=== PATIENT | female | born 1985 | race Hispanic/Latino ===

== ENCOUNTER 2017-08-24 21:18 | Emergency (ER) | payer OTHER ==
--- NOTE | 2017-08-24 23:38 | ER ---
Nurse's Notes [facility] Name: Cherelle Macias Age: 31 yrs Sex: Female : 1985 Arrival Date: 08/24/2017 Time: 21:19 Bed 30 Private MD: Vick Zamorano E Diagnosis: Jacobs's palsy;Headache Presentation: 08/24 21:32 Presenting complaint: Patient states: "I gave 8 days ago and I've had a migraine aj1 ever since. Its just been getting worse. I feel like I have an ear infection in both ears and I feel pressure in my face and behind my eye. Today I've been throwing up" Reports a 13 year history of migraines, but states this is the worst one that she has had. Denies any injury to head. Denies fever. Transition of care: patient was not received from another setting of care. Onset of symptoms was July 2017. Risk Assessment: Do you want to hurt yourself or someone else? Patient reports no desire to harm self or others. Initial Sepsis Screen: Does the patient meet any 2 criteria? No. Patient's initial sepsis screen is negative. Does the patient have a suspected source of infection? No. Patient's initial sepsis screen is negative. Care prior to arrival: None. 21:32 Method Of Arrival: Ambulatory aj1 21:32 Acuity: RYAN 3 aj1 Triage Assessment: 21:35 General: Appears in no apparent distress. uncomfortable, Behavior is calm, cooperative, aj1 appropriate for age. Pain: Complains of pain in top of head, right mosque and left mosque Pain does not radiate. Pain currently is 10 out of 10 on a pain scale. Quality of pain is described as pressure, stabbing, Pain began 8 days Is continuous. Neuro: Level of Consciousness is awake, alert, obeys commands, Moves all extremities. Full function Gait is steady, Speech is normal, Facial symmetry appears normal, Reports dizziness, headache photophobia. Cardiovascular: Patient's skin is warm and dry. Respiratory: Airway is patent Respiratory effort is even, unlabored, Respiratory pattern is regular, symmetrical. GI: Reports vomiting. Derm: Skin is pink, warm \\T\\ dry. normal. Musculoskeletal: Circulation, motion, and sensation intact. 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 - Social history:: Smoking status: Patient/guardian denies using tobacco. - Ebola Screening: : Patient denies travel to an Ebola-affected area in the 21 days before illness onset. Screenin:19 Abuse screen: Denies threats or abuse. Denies injuries from another. Nutritional ed1 screening: No deficits noted. Tuberculosis screening: No symptoms or risk factors identified. Fall Risk None identified. Assessment: 22:19 General: Appears uncomfortable, Behavior is calm, cooperative. Pain: Complains of pain ed1 in left mosque and right mosque and top of head Pain does not radiate. Pain currently is 10 out of 10 on a pain scale. Quality of pain is described as sharp, throbbing, Pain began 8 days ago after giving Is continuous, Alleviated by nothing. Current management is with Tylenol, Advil, is ineffective. 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 Full function Gait is steady, Speech is normal, Facial symmetry appears normal, Pupils are PERRLA, Intact Reports headache in entire frontal area, occipital area, that is the "worst ever". Cardiovascular: Denies chest pain, Heart tones S1 S2 present Rhythm is regular. Respiratory: Airway is patent Respiratory effort is even, unlabored, Respiratory pattern is regular, symmetrical, Breath sounds are clear bilaterally. GI: Patient currently denies diarrhea, nausea, vomiting. : No signs and/or symptoms were reported regarding the genitourinary system. EENT: Reports bilateral ear pain. Derm: Skin is pink, warm \\T\\ dry. Musculoskeletal: Circulation, motion, and sensation intact. Capillary refill < 3 seconds, in bilateral fingers. 22:30 Reassessment: I agree with above assessment. Vital Signs: 21:35 BP 128 / 79; Pulse 68; Resp 18; Temp 98.1; Pulse Ox 100% on R/A; Height 5 ft. 1 in. aj1 (154.94 cm) (R); Pain 10/10; 22:19 BP 126 / 86; Pulse 76; Resp 18; Pulse Ox 100% on R/A; Pain 10/10; ed1 23:59 BP 117 / 77; Pulse 70; Resp 16; Pulse Ox 98% on R/A; mb3 ED Course: 21:19 Patient arrived in ED. ds1 21:20 Vick Zamorano MD is Private Physician. ds1 21:34 Triage completed. aj1 21:35 Arm band placed on Patient placed in an exam room. aj1 21:42 Adam Perez NP is PHCP. pm1 21:42 Kwaku Christine MD is Attending Physician. pm1 21:43 Monika Rodriguez LVN is Primary Nurse. ed1 22:19 Patient has correct armband on for positive identification. Bed in low position. Call ed1 light in reach. Adult w/ patient. Pulse ox on. NIBP on. 22:27 Primary Nurse role handed off by Monika Rodriguez LVN ed1 22:40 CT Head Brain wo Cont In Process Unspecified. EDMS 23:37 Vick Zamorano MD is Referral Physician. pm1 23:59 Joni Zavala RN is Primary Nurse. mb3 08/25 00:00 No provider procedures requiring assistance completed. Patient did not have IV access mb3 during this emergency room visit. Administered Medications: 08/24 23:45 Drug: SOLU-Medrol 125 mg Route: IM; Site: right gluteus; mb3 08/25 00:01 Follow up: Response: No adverse reaction mb3 Outcome: 08/24 23:38 Discharge ordered by . pm1 08/25 00:00 Discharged to home ambulatory, with family. mb3 Condition: stable Discharge instructions given to patient, Instructed on discharge instructions, follow up and referral plans. medication usage, Demonstrated understanding of instructions, follow-up care, medications, Prescriptions given X 1. 00:01 Patient left the ED. mb3 Signatures: Dispatcher [employer] Lashon Leslie, RN RN aj1 Tawnya Ragland RN RN fc [place], Demi ds1 Monika Rodriguez LVN LVN ed1 Adam Perez NP YARD PILOT pm1 Joni Zavala RN RN mb3
--- NOTE | 2017-08-24 23:38 | EDPHYS ---
Physician Documentation [facility] Name: Cherelle Macias Age: 31 yrs Sex: Female : 1985 Arrival Date: 08/24/2017 Time: 21:19 Bed 30 Private MD: Vick Zamorano E ED Physician Kwaku Christine HPI: 08/24 22:30 This 31 yrs old Female presents to ER via Ambulatory with complaints of pm1 Migraine. 22:30 The patient complains of pain to the top of head, left eye, left temporal area and pm1 right temporal area. The patient describes the headache as aching. Onset: The symptoms/episode began/occurred 8 day(s) ago. Associated signs and symptoms: Pertinent positives: vomiting, vomiting relieves her migraines typically, Pertinent negatives: fever, neck stiffness, Photophobia rash, vision changes, vision loss. Severity of symptoms: in the emergency department the pain has improved. Headache History: The patient has had previous headaches and this one is similar to previous episodes, and this one is more severe than previous episodes. The symptoms are alleviated by vomiting the symptoms are aggravated by nothing. The patient has not experienced similar symptoms in the past. Patient with vaginal delivery of child 8 days ago. Reports headache present since delivery. Hx of migraines. this headache presents just like her prior migraines. For the past three days patient has had scratchiness and dryness to her left eye and her smile is irregular on the left side. 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 - Social history:: Smoking status: Patient/guardian denies using tobacco. - Ebola Screening: : Patient denies travel to an Ebola-affected area in the 21 days before illness onset. ROS: 22:30 Constitutional: Negative for fever, chills, and weight loss, Eyes: Negative for injury, pm1 pain, redness, and discharge, Left eye scratchiness and dryness Neck: Negative for injury, pain, and swelling, Cardiovascular: Negative for chest pain, palpitations, and edema, Respiratory: Negative for shortness of breath, cough, wheezing, and pleuritic chest pain, Abdomen/GI: Negative for abdominal pain, nausea, vomiting, diarrhea, and constipation, Back: Negative for injury and pain, : Negative for injury, bleeding, discharge, and swelling, MS/Extremity: Negative for injury and deformity, Skin: Negative for injury, rash, and discoloration. 22:30 ENT: Positive for ear pain, Negative for hearing loss, rhinorrhea, sore throat. 22:30 Neuro: Positive for headache, Negative for loss of consciousness, numbness, tingling, weakness. Exam: 22:30 Constitutional: This is a well developed, well nourished patient who is awake, alert, pm1 and in no acute distress. Head/Face: Normocephalic, atraumatic. Eyes: Pupils equal round and reactive to light, extra-ocular motions intact. Lids and lashes normal. Conjunctiva and sclera are non-icteric and not injected. Cornea within normal limits. Periorbital areas with no swelling, redness, or edema. ENT: Nares patent. No nasal discharge, no septal abnormalities noted. Tympanic membranes are normal and external auditory canals are clear. Oropharynx with no redness, swelling, or masses, exudates, or evidence of obstruction, uvula midline. Mucous membranes moist. Neck: Trachea midline, no thyromegaly or masses palpated, and no cervical lymphadenopathy. Supple, full range of motion without nuchal rigidity, or vertebral point tenderness. No Meningismus. Chest/axilla: Normal chest wall appearance and motion. Nontender with no deformity. No lesions are appreciated. Cardiovascular: Regular rate and rhythm with a normal S1 and S2. No gallops, murmurs, or rubs. Normal PMI, no JVD. No pulse deficits. Respiratory: Lungs have equal breath sounds bilaterally, clear to auscultation and percussion. No rales, rhonchi or wheezes noted. No increased work of breathing, no retractions or nasal flaring. Abdomen/GI: Soft, non-tender, with normal bowel sounds. No distension or tympany. No guarding or rebound. No evidence of tenderness throughout. Back: No spinal tenderness. No costovertebral tenderness. Full range of motion. Skin: Warm, dry with normal turgor. Normal color with no rashes, no lesions, and no evidence of cellulitis. MS/ Extremity: Pulses equal, no cyanosis. Neurovascular intact. Full, normal range of motion. 22:30 Neuro: Orientation: is normal, Mentation: is normal, Cranial nerves: normal except facial nerve - left, flattening of forehead and nasolabial fold on the left side.. Motor: moves all fours, strength is normal, strength is 5/5 in all extremities, Gait: is steady, at a normal pace, without difficulty. Vital Signs: 21:35 BP 128 / 79; Pulse 68; Resp 18; Temp 98.1; Pulse Ox 100% on R/A; Height 5 ft. 1 in. aj1 (154.94 cm) (R); Pain 10/10; 22:19 BP 126 / 86; Pulse 76; Resp 18; Pulse Ox 100% on R/A; Pain 10/10; ed1 23:59 BP 117 / 77; Pulse 70; Resp 16; Pulse Ox 98% on R/A; mb3 MDM: 21:45 Patient medically screened. pm1 23:34 ED course: Patient's headache resolved. pm1 23:36 Data reviewed: vital signs. Data interpreted: Pulse oximetry: on room air is 100 %. pm1 Interpretation: normal. Counseling: I had a detailed discussion with the patient and/or guardian regarding: the historical points, exam findings, and any diagnostic results supporting the discharge/admit diagnosis, radiology results, the need for outpatient follow up, to return to the emergency department if symptoms worsen or persist or if there are any questions or concerns that arise at home. 08/24 22:19 Order name: CT Head Brain wo Cont pm1 Administered Medications: 23:45 Drug: SOLU-Medrol 125 mg Route: IM; Site: right gluteus; mb3 08/25 00:01 Follow up: Response: No adverse reaction mb3 Disposition: 00:04 Co-signature as Attending Physician, Kwaku Christine MD. pkl Disposition: 08/24/17 23:38 Discharged to Home. Impression: Jacobs's palsy, Headache. - Condition is Stable. - Discharge Instructions: Jacobs Palsy, Migraine Headache. - Prescriptions for Prednisone 20 mg Oral Tablet - take 3 tablets by ORAL route once daily for 4 days Then 40mg daily for 3 days, then 20mg daily for 3 days; 21 tablet. - Medication Reconciliation Form, Thank You Letter, Antibiotic Education form. - Follow up: Emergency Department; When: As needed; Reason: Worsening of condition. Follow up: Vick Zamorano MD; When: 2 - 3 days; Reason: Recheck today's complaints, Continuance of care, Re-evaluation by your physician. - Problem is new. - Symptoms have improved. Signatures: Dispatcher [employer] EDLashon Yan RN RN aj1 Kwaku Christine MD MD pkl Adam Perez, RELATIONSHIP ASSOCIATE RELATIONSHIP ASSOCIATE pm1 Joni Zavala RN RN mb3 Corrections: (The following items were deleted from the chart) 00:01 07 23:38 08/24/2017 23:38 Discharged to Home. Impression: Jacobs's palsy; Headache. mb3 Condition is Stable. Forms are Medication Reconciliation Form, Thank You Letter, Antibiotic Education, Prescription Opioid Use. Follow up: Emergency Department; When: As needed; Reason: Worsening of condition. Follow up: Vick Zamorano; When: 2 - 3 days; Reason: Recheck today's complaints, Continuance of care, Re-evaluation by your physician. Problem is new. Symptoms have improved. pm1
[2017-08-24] MEDS ORDERED: METHYLPREDNISOLONE 125 MG INJ ONE (23:52)
[2017-08-25 00:43] VITALS: TEMP 98.1
[2017-08-25 00:44] VITALS: BP 117/77; O2SAT 98
--- NOTE | 2017-08-25 08:15 | RAD REPORT ---
EXAM DESCRIPTION: CT - Head Brain Wo Cont - 08/25/2017 5:16 am CLINICAL HISTORY: HEADACHE Ear pain COMPARISON: No comparisons TECHNIQUE: All CT scans are performed using dose optimization technique as appropriate and may inclu de automated exposure control or mA/KV adjustment according to patient size. FINDINGS: No intracranial hemorrhage, hydrocephalus or extra-axial fluid collection.No areas of brai n edema or evidence of midline shift. The paranasal sinuses and mastoids are clear. The calvarium is intact. IMPRESSION: No acute intracranial abnormality.
== END 2017-08-25 00:01 | disposition home or self-care (01) ==
LOC: ER 21:18
DX: G51.0 Bell's palsy (principal); G43.909 Migraine, unspecified, not intractable, without status migrainosus; Z88.8 Allergy status to other drugs, medicaments and biological substances
CPT/HCPCS: 70450; 96372; 99284; J2930

== ENCOUNTER 2021-01-07 07:54 | Emergency (ER) | payer OTHER, SELFPAY ==
--- OUTSIDE RECORDS SUMMARY | 2021-01-07 07:58 | XMS REPORT | Continuity of Care Document ---
:1985 Author Organization [facility] t Address [address] [place] [address] Care Team Providers Name Role Phone Juliano Zamorano MD Primary Care Physician Puneet CORREIA Attending Clinician Unavailable CALDERON LOREDO Attending Clinician Unavailable Luis M Correia MD Attending Clinician Calderon Loredo MD Attending Clinician Draw, Lab Attending Clinician Unavailable Doctor Unassigned, Name Attending Clinician Unavailable Puneet CORREIA Admitting Clinician Unavailable Payers Payer Name Policy Type Policy Number Effective Date Expiration Date [facility] [id number] [facility] [id number] 2019 00:00:00 Problems Condition Condition Condition Status Onset Resolution Last Treating Co mments Source Name Details Category Date Date Treatment Clinician Date Nasal Nasal Disease Active Univers obstructio obstructio 9-04 it y of n n 00:00: [place] [facility] Disease Active Univers labor labor 6-27 ity of 00:00: [place] [id number] Medical Branch Calculus Calculus Disease Active 2016-02 Overview: Un kristine of of 2-14 Formatt[place] ity of benito oliver 00:00: g of this [place] r without r without 00 note Medi carmina cholecysti cholecysti might be Branch tis tis different without without from the obstructio obstructio original. n n Added automatic ally from request for surgery [id number] Obesity Obesity Disease Active 2016-02 Univers (BMI (BMI 1-27 ity of 30-39.9) 30-39.9) 00:00: [place] 00 Medical Branch No known No known Disease [facility] r active active College problems problems of Medicin e Allergies, Adverse Reactions, Alerts Allergy Allergy Status Severity Reaction(s) Onset Inactive Treating Comm ents Source Name Type Date Date Clinician PROMETHA Allergy Active High [facility] PROMETHA DRUG Active High SOB Univers ZINE INGREDI 4-10 ity of 00:00: [place] 00 Medical Branch Phenerga Propensi Active Swelling Univ ers n Plain ty to 4-10 ity of adverse 00:00: [place] reaction 00 Medical s Branch Prometha Propensi Active Swelling Univ ers zine ty to 4-10 ity of adverse 00:00: [place] reaction 00 Medical s Branch Prometha Propensi Active Swelling [facility] zine ty to 4-10 College adverse 00:00: of reaction 00 Medicin s to e drug PHENERGA DRUG Active SOB Univers N PLAIN 4-10 ity of 00:00: [address] Branch Social History Social Habit Start Date Stop Date Quantity Comments Source History [facility] ge of Alcohol Std Medicine Drinks History [facility] ge of Alcohol Binge Medicine History [facility] ge of Alcohol Comment Medicine Exposure to Not sure [facility]-CoV-2 [place] [facility] (event) [place] Alcohol intake 2020-11-16 2020-11-16 Lifetime [facility] Col lege of 00:00:00 00:00:00 non-drinker Medicine (finding) Tobacco use and 2019-09-11 2019-09-11 Never used [facility] llege of exposure 00:00:00 00:00:00 Medicine History [facility] 2019-09-11 2019-09-11 1 [facility] ge of Alcohol Frequency 00:00:00 00:00:00 Medicin e Sex [birth year] At [birth year] Universit y of 00:00:00 00:00:00 [facility] Smoking Status Start Date Stop Date Source Never smoker [facility] Medications Ordered Filled Start Stop Current Ordering Indication Dosage Frequency Signature Comments Components Source Medication Medication Date Date Medication? Clinician (SIG) Name Name Nitrofurant Yes 100mg Take 1 Uni vers oin&Nit. 4-14 capsule by ity o f [place] ([place]CR[place] (two) Medical 100 mg times Branch capsule daily. Nitrofurant 2020-0 Yes 100mg Take 1 Uni vers oin&Nit. 4-14 capsule by ity o [place] (MACROBID[place] 00 (two) Medical 100 mg times Branch capsule daily. Nitrofurant 2020-0 Yes 100mg Take 1 Uni vers oin&Nit. 4-14 capsule by ity o [place] (MACROBID[place] 00 (two) Medical 100 mg times Branch capsule daily. Nitrofurant 2020-0 Yes 100mg Take 1 Uni vers oin&Nit. 4-14 capsule by ity o [place] (MACROBID[place] 00 (two) Medical 100 mg times Branch capsule daily. Nitrofurant 2020-0 Yes 100mg Take 1 Uni vers oin&Nit. 4-14 capsule by ity o [place] (MACROBID[place] 00 (two) Medical 100 mg times Branch capsule daily. Nitrofurant 2020-0 Yes 100mg Take 1 Uni vers oin&Nit. 4-14 capsule by ity o [place] (MACROBID[place] 00 (two) Medical 100 mg times Branch capsule daily. Nitrofurant 2020-0 Yes 100mg Take 1 Uni vers oin&Nit. 4-14 capsule by ity o [place] (MACROB[place] 00 (two) Medical 100 mg times Branch capsule daily. Nitrofurant 2020-0 Yes 100mg Take 1 Uni vers oin&Nit. 4-14 capsule by ity o f [place] (MACROBID[place] 00 (two) Medical 100 mg times Branch capsule daily. Nitrofurant 2020-0 Yes 100mg Take 1 Uni vers oin&Nit. 4-14 capsule by ity o f [place] (MACROBID) 00 (two) Medical 100 mg times Branch capsule daily. Nitrofurant 2021-0 Yes 100mg Take 1 Uni vers oin&Nit. 4-14 capsule by ity o f [place] (MACROB[place] 00 (two) Medical 100 mg times Branch capsule daily. Nitrofurant Yes [id number] 100mg Take 1 Univers oin&Nit. 4-13 capsule by ity o f [place] 100 mg 00 (two) Medical capsule times Branch daily. Nitrofurant Yes [id number] 100mg Take 1 Univers oin&Nit. 4-13 capsule by ity o [place] 100 mg 00 (two) Medical capsule times Branch daily. Nitrofurant 2020- No [id number] 100mg Take 1 Univers oin&Nit. 4-13 04-14 capsule by ity of [place] 00:00: 00:00 mouth 2 [place] as 100 mg 00 :00 (two) Medical capsule times Branch daily. Nitrofurant 2020- No 100mg Take 1 Un kristine oin&Nit. 4-08 -16 capsule by ity of [place] 00:00: 04:59 mouth 2 [place] as (MACROBID) 00 :00 (two) Medical 100 mg times Branch capsule daily for 7 days. Nitrofurant 2020- No 100mg Take 1 Un kristine oin&Nit. 4-08 04-16 capsule by ity of [place] 00:00: 04:59 mouth 2 [place] as (MACROBID) 00 :00 (two) Medical 100 mg times Branch capsule daily for 7 days. Nitrofurant 2020- No 100mg Take 1 Un kristine oin&Nit. 4-08 04-16 capsule by ity of [place] 00:00: 04:59 mouth 2 [place] as (MACROBID) 00 :00 (two) Medical 100 mg times Branch capsule daily for 7 days. Nitrofurant 2020- No 100mg Take 1 Un kristine oin&Nit. 4-08 04-16 capsule by ity of [place] 00:00: 04:59 mouth 2 [place] as (MACROBID) 00 :00 (two) Medical 100 mg times Branch capsule daily for 7 days. Nitrofurant 2020-0 2020- No 100mg Take 1 Un kristine oin&Nit. 4- 04-16 capsule by ity of [place] 00:00: 04:59 mouth 2 [place] as (MACROBID) 00 :00 (two) Medical 100 mg times Branch capsule daily for 7 days. Nitrofurant 2020- No 100mg Take 1 Un kristine oin&Nit. 05-28 04-14 capsule by ity of [place] 00:00: 00:00 mouth 2 [place] as (MACROBID) 00 :00 (two) Medical 100 mg times Branch capsule daily for 7 days. multivitami 0 Yes Take by Un kristine n (MULTIPLE 3-26 mouth. ity of VITAMINS 14:48: [place] ORAL) 33 Medical Branch multivitami 0 Yes Take by Un kristine n (MULTIPLE 3-26 mouth. ity of VITAMINS 14:48: [place] ORAL) 33 Medical Branch multivitami 0 Yes Take by Un kristine n (MULTIPLE 3-26 mouth. ity of VITAMINS 14:48: [place] ORAL) 33 Medical Branch multivitami 0 Yes Take by Un kristine n (MULTIPLE 3-26 mouth. ity of VITAMINS 14:48: [place] ORAL) 33 Medical Branch multivitami 0 Yes Take by Un kristine n (MULTIPLE 3-26 mouth. ity of VITAMINS 14:48: [place] ORAL) 33 Medical Branch multivitami 0 Yes Take by Un kristine n (MULTIPLE 3-26 mouth. ity of VITAMINS 14:48: [place] ORAL) 33 Medical Branch multivitami 0 Yes Take by Un kristine n (MULTIPLE 3-26 mouth. ity of VITAMINS 14:48: [place] ORAL) 33 Medical Branch multivitami 0 Yes Take by Un kristine n (MULTIPLE 3-26 mouth. ity of VITAMINS 14:48: [place] ORAL) 33 Medical Branch multivitami 0 Yes Take by Un kristine n (MULTIPLE 3-26 mouth. ity of VITAMINS 14:48: [place] ORAL) 33 Medical Branch multivitami 0 Yes Take by Un kristine n (MULTIPLE 3-26 mouth. ity of VITAMINS 14:48: [place] ORAL) 33 Medical Branch multivitami 2021-0 Yes Take by Un kristine n (MULTIPLE 3-26 mouth. ity of VITAMINS 14:48: [place] ORAL) 33 Medical Branch multivitami Yes Take by Un kristine n (MULTIPLE 3-26 mouth. ity of VITAMINS 14:48: [place] ORAL) 33 Medical Branch multivitami Yes Take by Un kristine n (MULTIPLE 3-26 mouth. ity of VITAMINS 14:48: [place] ORAL) 33 Medical Branch multivitami Yes Take by Un kristine n (MULTIPLE 3-26 mouth. ity of VITAMINS 14:48: [place] ORAL) 33 Medical Branch multivitami Yes Take by Un kristine n (MULTIPLE 3-26 mouth. ity of VITAMINS 14:48: [place] ORAL) 33 Medical Branch multivitami Yes Take by Un kristine n (MULTIPLE 3-26 mouth. ity of VITAMINS 14:48: [place] ORAL) 33 Medical Branch multivitami Yes Take by Un kristine n (MULTIPLE 3-26 mouth. ity of VITAMINS 14:48: [place] ORAL) 33 Medical Branch multivitami Yes Take by Un kristine n (MULTIPLE 3-24 mouth. ity of VITAMINS 14:48: [place] ORAL) 33 [facility] Branch sod Yes 1{packe Use 1 Univers chlor-bicar 9-04 t} Packet in ity of b-squeez 00:00: each [place] bottle pkdv 00 nostril. [facility] sod 0 2020- No 1{packe Use 1 Univers chlor-bicar 9-04 03-26 t} Packet in it y of b-squeez 00:00: 00:00 each [place] bottle pkdv 00 :00 nostril. [facility] sod 0 2020- No 1{packe Use 1 Univers chlor-bicar 9-04 03-26 t} Packet in it y of b-squeez 00:00: 00:00 each [place] bottle pkdv 00 :00 nostril. [facility] terbinafine Yes TAKE 1 Univ ers HCL 250 mg 6-18 TABLET BY ity of tablet 00:00: MOUTH ONCE [place] 00 DAILY [facility] terbinafine Yes TAKE 1 Univ ers HCL 250 mg 6-18 TABLET BY ity of tablet 00:00: MOUTH ONCE DAILY Medical Branch terbinafine 2020-0 Yes TAKE 1 Univ ers HCL 250 mg 6-18 TABLET BY ity of tablet 00:00: MOUTH ONCE DAILY Medical Branch terbinafine 2020-0 Yes TAKE 1 Univ ers HCL 250 mg 6-18 TABLET BY ity of tablet 00:00: MOUTH ONCE DAILY Medical Branch terbinafine 2020-0 Yes TAKE 1 Univ ers HCL 250 mg 6-18 TABLET BY ity of tablet 00:00: MOUTH ONCE DAILY Medical Branch terbinafine 2020-0 Yes TAKE 1 Univ ers HCL 250 mg 6-18 TABLET BY ity of tablet 00:00: MOUTH ONCE DAILY Medical Branch terbinafine 2020-0 Yes TAKE 1 Univ ers HCL 250 mg 6-18 TABLET BY ity of tablet 00:00: MOUTH ONCE DAILY Medical Branch terbinafine 2020-0 Yes TAKE 1 Univ ers HCL 250 mg 6-18 TABLET BY ity of tablet 00:00: MOUTH ONCE DAILY Medical Branch terbinafine 2020-0 Yes TAKE 1 Univ ers HCL 250 mg 6-18 TABLET BY ity of tablet 00:00: MOUTH ONCE DAILY Medical Branch terbinafine 2020-0 Yes TAKE 1 Univ ers HCL 250 mg 6-18 TABLET BY ity of tablet 00:00: MOUTH ONCE DAILY Medical Branch terbinafine 2020-0 Yes TAKE 1 Univ ers HCL 250 mg 6-18 TABLET BY ity of tablet 00:00: MOUTH ONCE DAILY Medical Branch terbinafine 2020-0 Yes TAKE 1 Univ ers HCL 250 mg 6-18 TABLET BY ity of tablet 00:00: MOUTH ONCE DAILY Medical Branch terbinafine 2020-0 Yes TAKE 1 Univ ers HCL 250 mg 6-18 TABLET BY ity of tablet 00:00: MOUTH ONCE DAILY Medical Branch terbinafine 2020-0 Yes TAKE 1 Univ ers HCL 250 mg 6-18 TABLET BY ity of tablet 00:00: MOUTH ONCE DAILY Medical Branch terbinafine 2020-0 Yes TAKE 1 Univ ers HCL 250 mg 6-18 TABLET BY ity of tablet 00:00: MOUTH ONCE DAILY Medical Branch terbinafine 2020-0 Yes TAKE 1 Univ ers HCL 250 mg 6-18 TABLET BY ity of tablet 00:00: MOUTH ONCE DAILY Medical Branch terbinafine 2020-0 Yes TAKE 1 Univ ers HCL 250 mg 6-18 TABLET BY ity of tablet 00:00: MOUTH ONCE DAILY Medical Branch terbinafine 2020-0 Yes TAKE 1 Univ ers HCL 250 mg 6-18 TABLET BY ity of tablet 00:00: MOUTH ONCE DAILY Medical Branch terbinafine 0 Yes TAKE 1 [facility] (LAMISIL) 6-18 TABLET BY Colle ge 250 MG 00:00: MOUTH ONCE of tablet 00 DAILY Medicin e terbinafine 0 Yes TAKE 1 [facility] (LAMISIL) 6-18 TABLET BY Colle ge 250 MG 00:00: MOUTH ONCE of tablet 00 DAILY Medicin e terbinafine 0 Yes TAKE 1 [facility] (LAMISIL) 6-18 TABLET BY Colle ge 250 MG 00:00: MOUTH ONCE of tablet 00 DAILY Medicin e terbinafine 0 Yes TAKE 1 [facility] (LAMISIL) 6-18 TABLET BY Colle ge 250 MG 00:00: MOUTH ONCE of tablet 00 DAILY Medicin e terbinafine 0 Yes TAKE 1 [facility] (LAMISIL) 6-18 TABLET BY Colle ge 250 MG 00:00: MOUTH ONCE of tablet 00 DAILY Medicin e terbinafine 0 Yes TAKE 1 [facility] (LAMISIL) 6-18 TABLET BY Colle ge 250 MG 00:00: MOUTH ONCE of tablet 00 DAILY Medicin e terbinafine 2019-0 Yes TAKE 1 [facility] (LAMISIL) 6-18 TABLET BY Colle ge 250 MG 00:00: MOUTH ONCE of tablet 00 DAILY Medicin e terbinafine 0 Yes TAKE 1 [facility] (LAMISIL) 6-18 TABLET BY Colle ge 250 MG 00:00: MOUTH ONCE of tablet 00 DAILY Medicin e Breast Pump Yes [id number] Use as Univers Margi 09-05 directed ity of 00:00: [place] [facility] Breast Pump 2017-2020- No [id number] Use as Univers Margi 09-05 directed ity of 00:00: 00:00 [place] 00 :00 Medical Branch Breast Pump 2017-2020- No [id number] Use as Univers Margi 09-05 directed ity of 00:00: 00:00 [place] 00 :00 Medical Branch Yes 1{tbl} Take 1 Unive rs vitamin 6-30 tablet by ity of w/FA tablet 00:00: mouth [place] 00 daily. Medical Branch 2020- No 1{tbl} Take 1 Univ ers vitamin 6-30 03-26 tablet by ity of w/FA tablet 00:00: 00:[place] 00 :00 daily. Medical Branch 2020- No 1{tbl} Take 1 Univ ers vitamin 6-30 03-26 tablet by ity of w/FA tablet 00:00: 00:[place] 00 :00 daily. Medical Branch Multiple 2016-02 Yes DAILY [facility] Vitamins-Mi 0-16 College nerals 00:00: of (MULTIVITAM 00 Medicin IN ADULT e EXTRA C OR) Multiple 2016-02 Yes DAILY [facility] Vitamins-Mi 0-16 College nerals 00:00: of (MULTIVITAM 00 Medicin IN ADULT e EXTRA C OR) Multiple 2016-02 Yes DAILY [facility] Vitamins-Mi 0-16 College nerals 00:00: of (MULTIVITAM 00 Medicin IN ADULT e EXTRA C OR) Multiple 2016-02 Yes DAILY [facility] Vitamins-Mi 0-16 College nerals 00:00: of (MULTIVITAM 00 Medicin IN ADULT e EXTRA C OR) Multiple 2016-02 Yes DAILY [facility] Vitamins-Mi 0-16 College nerals 00:00: of (MULTIVITAM 00 Medicin IN ADULT e EXTRA C OR) Multiple 2016-02 Yes DAILY [facility] Vitamins-Mi 0-16 College nerals 00:00: of (MULTIVITAM 00 Medicin IN ADULT e EXTRA C OR) Multiple 2016-02 Yes DAILY [facility] Vitamins-Mi 0-16 College nerals 00:00: of (MULTIVITAM 00 Medicin IN ADULT e EXTRA C OR) Multiple 2016-02 Yes DAILY [facility] Vitamins-Mi 0-16 College nerals 00:00: of (MULTIVITAM 00 Medicin IN ADULT e EXTRA C OR) Vital Signs Vital Name Observation Time Observation Value Comments Source HEIGHT 2019-10-10 00:00:00 154.9 cm WEIGHT 2019-10-10 00:00:00 80.377 kg Systolic blood 2020-11-16 13:46:00 123 mm[Hg] [facility] Medicine Diastolic blood 2020-11-16 13:46:00 77 mm[Hg] [facility] pressure Medicine Heart rate 2020-11-16 13:46:00 73 /min [facility] C ollege of Medicine Body height 2020-11-16 13:46:00 154.9 cm [facility] C ollege of Medicine Body weight 2020-11-16 13:46:00 74.844 kg [facility] C ollege of Medicine BMI 2020-11-16 13:46:00 31.18 kg/m2 [facility] C ollege of Medicine Systolic blood 2020-06-10 13:55:00 125 mm[Hg] [facility] pressure Medicine Diastolic blood 2020-06-10 13:55:00 75 mm[Hg] [facility] Medicine Heart rate 2020-06-10 13:55:00 76 /min [facility] C ollege of Medicine Body height 2020-06-10 13:55:00 154.9 cm [facility] ollege of Medicine Body weight 2020-06-10 13:55:00 74.844 kg [facility] ollege of Medicine BMI 2020-06-10 13:55:00 31.18 kg/m2 [facility] ollege of Medicine Systolic blood 2020-05-15 14:48:00 127 mm[Hg] Univer sity of pressure [facility] Diastolic blood 2020-05-15 14:48:00 73 mm[Hg] Unive rsity of pressure [facility] Heart rate 2020-05-15 14:48:00 66 /min Universi ty of [facility] Body temperature 2020-05-15 14:48:00 37 Lois Univ ersity of [facility] Branch Body height 2020-05-15 14:48:00 154.9 cm Universi ty of [facility] Body weight 2020-05-15 14:48:00 71.532 kg Universi ty of [facility] Branch BMI 2020-05-15 14:48:00 29.80 kg/m2 Universi ty of [facility] Systolic blood 2020-02-05 20:31:00 102 mm[Hg] [facility] pressure Medicine Diastolic blood 2020-02-05 20:31:00 48 mm[Hg] [facility] pressure Medicine Heart rate 2020-02-05 20:31:00 78 /min [facility] C ollege of Medicine Respiratory rate 2020-02-05 20:31:00 18 /min [facility] Body height 2020-02-05 20:31:00 154.9 cm [facility] C ollege of Medicine Body weight 2020-02-05 20:31:00 74.844 kg [facility] C ollege of Medicine BMI 2020-02-05 20:31:00 31.18 kg/m2 [facility] ollege of Medicine Heart rate 2019-11-27 19:24:00 77 /min [facility] C ollege of Medicine Systolic blood 2019-11-27 19:24:00 113 mm[Hg] [facility] pressure Medicine Diastolic blood 2019-11-27 19:24:00 70 mm[Hg] [facility] pressure Medicine Systolic blood 2019-10-30 20:27:00 118 mm[Hg] [facility] pressure Medicine Diastolic blood 2019-10-30 20:27:00 79 mm[Hg] [facility] pressure Medicine Heart rate 2019-10-30 20:27:00 89 /min [facility] ollege of Medicine Body height 2019-10-30 20:27:00 154.9 cm [facility] C ollege of Medicine Body weight 2019-10-30 20:27:00 80.287 kg [facility] ollege of Medicine BMI 2019-10-30 20:27:00 33.44 kg/m2 [facility] ollege of Medicine HEIGHT 2019-10-10 00:00:00 154.9 cm WEIGHT 2019-10-10 00:00:00 80.377 kg Systolic blood 2019-10-09 13:29:00 132 mm[facility]Hg[facility] Diastolic blood 2019-10-09 13:29:00 93 [facility]Hg[facility] Heart rate 2019-10-09 13:29:00 75 /min [facility] ollege of Medicine Body temperature 2019-10-09 13:29:00 36.5 Lois [facility] Body height 2019-10-09 13:29:00 154.9 cm [facility] ollege of Medicine Body temperature 2019-09-11 14:51:00 36.44 Lois [facility] Body height 2019-09-11 14:51:00 154.9 cm [facility] Body weight 2019-09-11 14:51:00 84.823 kg [facility] BMI 2019-09-11 14:51:00 35.33 kg/m2 [facility] Procedures Procedure Date / Time Performed Performing Clinician Sourc e HIV 1/2 AG-AB WITH 2020-06-10 17:43:[address] [facility] REFLEX [facility] GALV ONLY - SYPHILIS 2020-06-10 17:36:00 Johnson Loredo [facility] IGG/IGM [facility] URINALYSIS 2020-05-29 19:01:00 Johnson Loredo [facility] URINE CULTURE 2020-05-29 19:01:00 Johnson Loredo [facility] CONSENT/REFUSAL FOR 2020-05-15 13:45:53 [facility] Name [facility] Branch TREATMENT Plan of Care Planned Activity Planned Date Details Comments Source Future Scheduled 2020-11-16 COVID-19 Vaccine (1) [facility] Test 09:40:11 [code = COVID-19 of Medicine Vaccine (1)] Future Scheduled 2020-11-16 BMI FOLLOW UP PLAN [facility] College Test 09:40:11 [code = BMI FOLLOW UP of Med icine PLAN] Future Scheduled 2020-11-16 Hepatitis C screening Ba [facility] Test 09:40:11 (procedure) [code = of Medic ine [id number]] Future Scheduled 2020-11-16 Human immunodeficiency B [facility] Test 09:40:11 virus screening of Medicine (procedure) [code = 437577834] Future Scheduled 2020-11-16 Screening for malignant [facility] Test 09:40:11 neoplasm of cervix of Medici ne (procedure) [code = 436846891] Future Scheduled 2020-11-16 FLU VACCINE > 6 MONTHS [facility] College Test 09:40:11 [code = FLU VACCINE > 6 of M edicine MONTHS] Future Scheduled 2020-11-16 TETANUS SHOT (ADULT) [place] [facility] College Test 09:40:11 [code = TETANUS SHOT of Medi cine (ADULT)] Future Scheduled 2020-11-16 COVID-19 Vaccine (1) [place] [facility] Test 09:40:11 [code = COVID-19 of Medicine Vaccine (1)] Future Scheduled 2020-11-16 BMI FOLLOW UP PLAN [employer] Test 09:40:11 [code = BMI FOLLOW UP of Med icine PLAN] Future Scheduled 2020-11-16 Hepatitis C screening [employer] Test 09:40:11 (procedure) [code = of Medic ine [id number]] Future Scheduled 2020-11-16 Human immunodeficiency [facility] [employer] Test 09:40:11 virus screening of Medicine (procedure) [code = 132346121] Future Scheduled 2020-11-16 Screening for malignant [facility] [employer] Test 09:40:11 neoplasm of cervix of Medici ne (procedure) [code = 378330495] Future Scheduled 2020-11-16 FLU VACCINE > 6 MONTHS [facility] [employer] Test 09:40:11 [code = FLU VACCINE > 6 of M edicine MONTHS] Future Scheduled 2020-11-16 TETANUS SHOT (ADULT) [place] [facility] [employer] Test 09:40:11 [code = TETANUS SHOT of Medi cine (ADULT)] Future Scheduled TETANUS SHOT (ADULT) [place] [facility] [employer] Test [code = TETANUS SHOT of Medi cine (ADULT)] Future Scheduled BMI FOLLOW UP PLAN [employer] Test [code = BMI FOLLOW UP of Med icine PLAN] Future Scheduled HEPATITIS C SCREENING [employer] Test [code = HEPATITIS C of Medic ine SCREENING] Future Scheduled HIV SCREENING [code = [employer] [facility] HIV SCREENING] of Medicine Future Scheduled CERVICAL CANCER [facility] C [facility] Test SCREENING 3 YEAR FOLLOW of M edicine UP [code = CERVICAL CANCER SCREENING 3 YEAR FOLLOW UP] Future Scheduled FLU VACCINE > 6 MONTHS [employer] Test [code = FLU VACCINE > 6 of M edicine MONTHS] Future Scheduled ZOSTER VACCINE (1 of 2) [facility] College Test [code = ZOSTER VACCINE of Me dicine (1 of 2)] Future Scheduled BMI FOLLOW UP PLAN [employer] Test [code = BMI FOLLOW UP of Med icine PLAN] Future Scheduled HEPATITIS C SCREENING [employer] Test [code = HEPATITIS C of Medic ine SCREENING] Future Scheduled HIV SCREENING [code = [employer] [facility] HIV SCREENING] of Medicine Future Scheduled CERVICAL CANCER [facility] C ollege Test SCREENING 3 YEAR FOLLOW of M edicine UP [code = CERVICAL CANCER SCREENING 3 YEAR FOLLOW UP] Future Scheduled FLU VACCINE > 6 MONTHS [employer] Test [code = FLU VACCINE > 6 of M edicine MONTHS] Future Scheduled TETANUS SHOT (ADULT) [place] [facility] [employer] Test [code = TETANUS SHOT of Medi cine (ADULT)] Future Scheduled COVID-19 Vaccine (1) [place] [facility] [employer] Test [code = COVID-19 of Medicine Vaccine (1)] Future Scheduled BMI FOLLOW UP PLAN [employer] Test [code = BMI FOLLOW UP of Med icine PLAN] Future Scheduled Hepatitis C screening [facility] Test (procedure) [code = of Medic ine [id number]] [facility] virus screening of Medicine (procedure) [code = 211654324] Future Scheduled Screening for malignant [facility] Test neoplasm of cervix of Medici ne (procedure) [code = 498972474] Future Scheduled FLU VACCINE > 6 MONTHS [employer] Test [code = FLU VACCINE > 6 of M edicine MONTHS] Future Scheduled TETANUS SHOT (ADULT) [place] [facility] [employer] Test [code = TETANUS SHOT of Medi cine (ADULT)] Future Scheduled LARYNGOSCOPY, FLEXIBLE; Ordered: [facility] Test DIAGNOSTIC [code = 09/11/2019 [place] [address]] Future Scheduled TETANUS SHOT (ADULT) [place] [facility] [employer] Test [code = TETANUS SHOT of Medi cine (ADULT)] Future Scheduled HIV SCREENING [code = [employer] [facility] HIV SCREENING] of Medicine Future Scheduled CERVICAL CANCER [facility] C ollege Test SCREENING 3 YEAR FOLLOW of M edicine UP [code = CERVICAL CANCER SCREENING 3 YEAR FOLLOW UP] Future Scheduled FLU VACCINE > 6 MONTHS [employer] Test [code = FLU VACCINE > 6 of M edicine MONTHS] Future Scheduled TETANUS SHOT (ADULT) [employer] [facility] [code = TETANUS SHOT of Medi cine (ADULT)] Future Scheduled BMI FOLLOW UP PLAN [employer] Test [code = BMI FOLLOW UP of Med icine PLAN] Future Scheduled HIV SCREENING [code = [employer] HIV SCREENING] of Medicine Future Scheduled CERVICAL CANCER [facility] C ollege Test SCREENING 3 YEAR FOLLOW of M edicine UP [code = CERVICAL CANCER SCREENING 3 YEAR FOLLOW UP] Future Scheduled FLU VACCINE > 6 MONTHS [employer] Test [code = FLU VACCINE > 6 of M edicine MONTHS] Future Scheduled ZOSTER VACCINE (1 of 2) [facility] College Test [code = ZOSTER VACCINE of Pr dicine (1 of 2)] Future Scheduled TETANUS SHOT (ADULT) [facility] Test [code = TETANUS SHOT of Medi cine (ADULT)] Future Scheduled BMI FOLLOW UP PLAN [facility] Test [code = BMI FOLLOW UP of Med icine PLAN] Future Scheduled HIV SCREENING [code = [employer] HIV SCREENING] of Medicine Future Scheduled CERVICAL CANCER [facility] C ollege Test SCREENING 3 YEAR FOLLOW of edicine UP [code = CERVICAL CANCER SCREENING 3 YEAR FOLLOW UP] Future Scheduled FLU VACCINE > 6 MONTHS [facility] [code = FLU VACCINE > 6 of M edicine MONTHS] Future Scheduled ZOSTER VACCINE (1 of 2) [facility] Test [code = ZOSTER VACCINE of Me dicine (1 of 2)] Future Scheduled [facility]UDIOLOGY EVALUATION [facility] = [facility] starting of Medicine 09/11/2019 until 09/10/[address] SINUS W FUSION [code 1 Occurrences [facility] Test = 78465] starting of Medicine 09/11/2019 until 04/13/2020 Encounters Start End Encounter Admission Attending Care Care Encounter Source Date/Time Date/Time Type Type Clinicians Facility Department ID 2020-11-25 Outpatient FAM [facility] Surgery [id number] [facility] 03:54:06 [facility] 2020-11-18 2020-11-18 Outpatient MITESH LOREDO [facility] [id number] Univers 10:30:00 10:30:00 JOHNSON [id number] [facility] 2020-11-16 2020-11-16 Office BETH Correia [id number] [place] [address] 08:42:31 09:09:54 Visit [facility] AMBULATOR [id number] College Asencio Y 0.2.7.2.686 of [id number] [facility] bobbi 800 e 2020-10-28 2020-10-28 Telephone MITESH Loredo [id number] Univers 00:00:00 00:00:[address] 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 10 ity of [place] 4.2.7.2.686 [employer] [phone] [facility] [address] 2020-06-10 2020-06-10 Outpatient R [facility] [id number] -[id number] Univers 12:00:00 12:00:00 [id number] [facility] 2020-06-10 2020-06-10 Outpatient R GERTRUDE [facility] [id number] Univers 12:00:00 12:00:00 WORKMAN [facility] 2020-06-10 2020-06-10 Office BETH Correia [id number] [facility] 09:17:31 09:28:38 [facility] [id number] College Asencio Y 0.2.7.2.686 of [id number] [facility] 800 e 2020-06-03 2020-06-03 Telephone Gertrude WVJUDD [id number] 00:00:00 00:00:00 [facility] [id number] [place] 4.2.7.2.686 [place] [phone] Medical [address] Office [address] 2020-06-03 2020-06-03 Telephone Gertrude WVJUDD [id number] 00:00:00 00:00:00 [facility] [id number] [place] 4.2.7.2.686 [place] [id number] Medical [address] Office Building 2020-06-03 2020-06-03 Letter Gertrude WVJUDD [id number] 00:00:00 00:00:00 (Out) [facility] [id number] [place] 4.2.7.2.686 [place] [phone] Medical [address] Office [address] 2020-06-03 2020-06-03 Telephone Gertrude WVJUDD [id number] Univers 00:00:00 00:00:00 [facility] [id number] it [place] [phone] [place] [address] [address] Office Building 2020-06-03 2020-06-03 Telephone LoredoRUST [id number] Univers 00:00:00 00:00:00 [facility] 350.1.13.10 it [place] [id number] [address] Office Building 2020-06-03 2020-06-03 [facility] 1.2.840.114 [id number] Univers 00:00:00 00:00:00 (Out) [facility] 350.1.13.10 [place] [id number] [address] Office Building 2020-06-02 2020-06-02 [facility] [id number] 00:00:00 00:00:00 [facility] 350.1.13.10 [place] 4.2.7.2.686 [place] [id number] [place] [address] Office Building 2020-06-02 2020-06-02 Telephone LoredoRUST [id number] Univers 00:00:00 00:00:00 [facility] 350.1.13.10 it [place] [id number] [place] [address] [address] Office Building 2020-05-29 2020-05-29 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 10 [place] [id number] [address] Office Building 2020-05-29 2020-05-29 Outpatient R [facility] [id number] -[id number] Univers 14:00:00 14:00:00 [id number] [facility] 2020-05-29 2020-05-29 Outpatient R [facility]ERTRUDE [facility] [id number] Univers 14:00:00 14:00[facility]00 [facility] 2020-05-29 2020-05-29 Telephone GertrudeRUST [id number] Univers 00:00:00 00:00:00 [facility] 350.1.13.10 it [place] [id number] [address] Office Building 2020-05-28 2020-05-28 Telephone GertrudeRUST [id number] Univers 00:00:00 00:00:00 [facility] 350.1.13.10 it [place] [id number] [address] Office Building 2020-05-15 2020-05-15 Office LoredoRUST 1.2.840.114 [id number] Univers 08:46:48 09:01:48 Visit [facility] 350.1.13.10 [place] [phone] [address] Office Building 2020-05-15 2020-05-15 Outpatient R GERTRUDE [facility] [id number] -[id number] Univers 09:00:00 09:00:00 WORKMAN [id number] [facility] 2020-05-15 2020-05-15 Outpatient R [facility]TR[facility] [id number] Univers 09:00:00 09:00:00 WORKMAN [facility] 2020-05-15 2020-05-15 Orders Doctor KENYATTA 1.2.840.114 [id number] Univers 00:00:00 00:00:00 Only Unassigned, DANIEL 350.1.13.10 ity of [facility] 4.2.7.2.686 [place] as [phone] [place] [address] Branch 2020-02-05 2020-02-05 Office BETH Correia 1.2.840.114 [id number] [facility] 14:10:36 14:55:44 Visit [employer] AMBULATOR 350.1.13.21 College Asencio Y 0.2.7.2.686 of [id number] [facility] bobbi 800 e 2019-11-27 2019-11-27 Office BETH Correia 1.2.840.114 [id number] [facility] 13:51:44 15:04:49 Visit [employer] AMBULATOR 350.1.13.21 College Asenc[place] Y 0.2.7.2.686 of [id number] [facility] bobbi 800 e 2019-10-30 2019-10-30 Office BETH Correia 1.2.840.114 [id number] [facility] 15:17:59 16:19:23 Visit [employer] AMBULATOR 350.1.13.21 College Asencio Y 0.2.7.2.686 of [id number] [facility] bobbi 800 e 2019-10-10 2019-10-10 Outpatient [facility] [id number] [address] [place] [address] 00:00:00 00:00:00 2019-10-09 2019-10-09 Office BETH Correia 1.2.840.114 [id number] [facility] 08:22:46 09:10:37 Visit [employer] AMBULATOR 350.1.13.21 College Asenc[place] Y 0.2.7.2.686 of [id number] [facility] bobbi 800 e 2019-09-11 2019-09-11 Office BETH Correia 1.2.840.114 [id number] [facility] 09:47:35 10:41:55 Visit [employer] AMBULATOR 350.1.13.21 College Asencio Y 0.2.7.2.686 of [id number] [facility] bobbi 800 e Results Test Description Test Time Test Comments Results Result Comments Source GALV ONLY - SYPHILIS IGG/IGM 2020-06-11 15:00:47 Test Item Value Reference Range Interpretation Comme nts Syphilis IgG/IgM (test code = Non-reactive Non-reactive 03153-7) ALANIS (test code = ALANIS) Non-reactive - No serologic evidence of T. pallidum infection. Cannot exclude incubating or early syphilis. Submit a second specimen in 2-4 weeks if syphilis is clinically suspected. Equivocal - Further testing to follow. Reactive - Further testing to follow. Lab Interpretation (test code = Normal 71707-7) [facility] WITH [id number] 21:08:43 Test Item Value Reference Range Interpretation Comments HIV Negative Negative Semi-quantitative (test code = 82964-7) ALANIS (test code = Non-reactive for HIV-1 ALANIS) antigen and HIV-1/HIV-2 antibodies. ?No laboratory evidence of HIV infection. ?Repeat in 2-4 weeks if acute HIV infection is suspected. [facility] 21:01:16 Test Item Value Reference Range Interpretation Comments APPEARANCE (test code = Cloudy Clear A 4772052568) COLOR (test code = Yellow Yellow 7769277164) PH (test code = 4.8-8.0 8196659772) SP GRAVITY (test code = 1.003-1.030 4748886187) GLU U QUAL (test code = Normal Normal 9764437726) BLOOD (test code = 2+ Negative A 5109091139) KETONES (test code = Negative Negative 9328529560) PROTEIN (test code = 30 mg/dL Negative A 2887-8) UROBILIN (test code = Normal Normal 6119480493) BILIRUBIN (test code = Negative Negative 3563736104) NITRITE (test code = Negative Negative 3138117255) LEUK AMBER (test code = 500/uL Negative A 3087287609) RBC/HPF (test code = See_Comment H [Autom ated message] 1781280462) The system [employer] generated this result transmitted ref erence range: 0 - 3 HP F. The reference range was not used to int erpret this result as normal/abnormal . WBC/HPF (test code = >182 See_Comment H [Autom ated message] 4237754240) The system [employer] generated this result transmitted ref erence range: 0 - 5 HP F. The reference range was not used to int erpret this result as normal/abnormal . BACTERIA (test code = Many Negative A 4484956975) MUCOUS (test code = Slight Negative LPF A 1875268287) SQ EPITH (test code = <1 See_Comment [Auto mated message] 6516670515) The system [employer] generated this result transmitted ref erence range: <=2 HPF. The reference range was not used to int erpret this result as normal/abnormal . WBC CLUMPS (test code = See_Comment H [Au tomated message] 2358654226) The system [employer] generated this result transmitted ref erence range: <=1 HPF. The reference range was not used to int erpret this result as normal/abnormal . Lab Interpretation (test Abnormal code = 56890-9) [facility] [id number] 10:17:00 Test Item Value Reference Range Interpretation Comments POC-HEMOGLOBIN METER 13.5 g/dL 12.0-15.0 TESTED AT [facility] 67 (RAINER) (test code = [place] 1539) [address]
[2021-01-07] MEDS ORDERED: ONDANSETRON 4 MG/2 ML VIAL ONE (08:17)
[2021-01-07] MEDS ORDERED: NA CHLORIDE 0.9% 1,000 ML ONE (08:17)
[2021-01-07] MEDS ORDERED: DICYCLOMINE HCL 20 MG/2 ML AMP IM ONE (08:17)
[2021-01-07 08:22] LABS: Absolute Lymphocytes (CBC) 0.7 K/uL (0.7-4.9); Basophils % 0.2 % (0-1.3); Hematocrit 40.1 % (36.0-45.0); MPV 8.5 fL (7.6-11.3); RBC Red Blood Cell Count 4.68 M/uL (3.86-4.86)
[2021-01-07 08:41] LABS: ALT/SGPT 20 U/L (12-78); AST/SGOT 12 U/L (15-37); Albumin 4.1 g/dL (3.4-5.0); Alkaline Phosphatase 76 U/L (45-117); BUN Blood Urea Nitrogen 15 mg/dL (7-18); Bicarbonate 24 mmol/L (21-32); Bilirubin Direct 0.3 mg/dL (0-0.2); Bilirubin Total 1.2 mg/dL (0.2-1.0); Glucose Level 107 mg/dL (74-106); Lipase 148 U/L (73-393); Potassium 3.8 mmol/L (3.5-5.1); Protein, Total 7.7 g/dL (6.4-8.2); Sodium Level 140 mmol/L (136-145)
[2021-01-07 09:28] LABS: Urine Blood Negative (Negative); Urine Glucose Negative (Negative); Urine Protein Negative (Negative); Urine Specific Gravity 1.025 (1.005-1.030); Urine pH 5.5 (5.0-7.0)
[2021-01-07 09:33] LABS: Urine Specific Gravity/Preg 1.025 (1.005-1.030)
[2021-01-07 09:37] LABS: Blood Morphology Comment NOT SEEN (NOT SEEN); Platelet Estimate ADEQ; White Blood Cell Scan OK (OK)
--- NOTE | 2021-01-07 09:58 | RAD REPORT ---
EXAM DESCRIPTION: CTAbdomen Pelvis W Contrast - 01/07/2021 9:47 am CLINICAL HISTORY: Abdominal pain. ABD PAIN COMPARISON: No comparisons TECHNIQUE: Biphasic CT imaging of the abdomen and pelvis was performed with 100 ml non-ionic IV cont rast. All CT scans are performed using dose optimization technique as appropriate and may include automated exposure control or mA/KV adjustment according to patient size. FINDINGS: The lung bases are clear.Cholecystectomy clips. The liver, spleen, pancreas, adrenal glands and kidneys are within normal limits. No bowel obstruction, free air, free fluid or abscess. The appendix is normal. No evidence of signi ficant lymphadenopathy. No suspicious bony findings. Boggy appearance to the gynecologic structures noted mild pelvic free fluid. IMPRESSION: No acute intra-abdominal or pelvic finding. Boggy appearance to gynecologic structures mild pelvic free fluid is nonspecific. Suggest correlation for the possibility of pelvic infection.
--- NOTE | 2021-01-07 10:12 | ER ---
Nurse's Notes [facility] Name: Cherelle Macias Age: 35 yrs Sex: Female : 1985 Arrival Date: 01/07/2021 Time: 07:56 Bed 6 Private MD: Diagnosis: Acute Gastroenteritis Presentation: 01/07 08:07 Chief complaint: Patient states: "I woke up around 4 am with abdominal pain and then I aa5 started with diarrhea and vomiting". Coronavirus screen: diarrhea, vomiting. Ebola Screen: No symptoms or risks identified at this time. Risk Assessment: Do you want to hurt yourself or someone else? Patient reports no desire to harm self or others. Onset of symptoms was January 07, 2021. 08:07 Method Of Arrival: Wheelchair aa5 08:07 Acuity: RYAN 3 aa5 08:10 Initial Sepsis Screen: Does the patient meet any 2 criteria? No. Patient's initial bp sepsis screen is negative. Does the patient have a suspected source of infection? No. Patient's initial sepsis screen is negative. Triage Assessment: 08:10 General: Appears in no apparent distress. uncomfortable, Behavior is calm, cooperative, bp appropriate for age. Pain: Complains of pain in abdomen diffusely. EENT: No deficits noted. Neuro: Level of Consciousness is awake, alert, obeys commands. Cardiovascular: No deficits noted. Respiratory: No deficits noted. GI: Reports lower abdominal pain, upper abdominal pain, diarrhea, nausea, vomiting. : No signs and/or symptoms were reported regarding the genitourinary system. Derm: No deficits noted. Musculoskeletal: No deficits noted. Historical: - Allergies: 08:08 Phenergan; aa5 - PMHx: 08:08 Migraines; aa5 - PSHx: 08:08 D\\T\\C; Cholecystectomy; aa5 - Immunization history:: Client reports having NOT received the Covid vaccine. - Social history:: Smoking status: Patient denies any tobacco usage or history of. Screenin:10 Abuse screen: Denies threats or abuse. Denies injuries from another. Nutritional bp screening: No deficits noted. Tuberculosis screening: No symptoms or risk factors identified. Fall Risk None identified. Assessment: 08:10 Reassessment: SEE TRIAGE NOTE. bp 09:00 Reassessment: No changes from previously documented assessment. Patient and/or family bp updated on plan of care and expected duration. Pain level reassessed. 10:37 Reassessment: PT D/C HOME VIA W/C WITH FAMILY, DX WITH VIRAL GASTROENTERITIS. bp Vital Signs: 08:07 Weight 72.57 kg (R); Height 5 ft. 1 in. (154.94 cm) (R); aa5 08:10 BP 98 / 62; Pulse 71; Resp 20; Pulse Ox 100% ; bp 09:00 BP 87 / 51; Pulse 58; Resp 18; Pulse Ox 100% ; bp 10:37 BP 101 / 57; Pulse 65; Resp 17; Temp 98.1; Pulse Ox 99% ; bp 08:07 Body Mass Index 30.23 (72.57 kg, 154.94 cm) aa5 ED Course: 07:56 Patient arrived in ED. as 08:03 Arm band placed on Patient placed in an exam room, on a stretcher. aa5 08:05 Trevor Foster, CARR[place] is Primary Nurse. bp 08:05 Thomas Mcfarlane PA is PHCP. jr8 08:05 Quincy Martin MD is Attending Physician. jr8 08:08 Triage completed. aa5 08:10 Patient has correct armband on for positive identification. Bed in low position. Call bp light in reach. Side rails up X2. 08:10 Inserted saline lock: 20 gauge in right Blood collected. bp 09:46 CT Abd/Pelvis - IV Contrast Only In Process Unspecified. EDMS 10:37 No provider procedures requiring assistance completed. IV discontinued, intact, bp bleeding controlled, No redness/swelling at site. Pressure dressing applied. Administered Medications: 08:20 Drug: Zofran (Ondansetron) 4 mg Route: IVP; Site: right antecubital; bp 08:20 Drug: Bentyl (dicyclomine) 20 mg Route: IM; Site: right deltoid; bp 08:20 Drug: NS 0.9% 1000 ml Route: IV; Rate: 1000 ml; Site: right antecubital; bp Outcome: 10:12 Discharge ordered by . jr8 10:37 Discharged to home via wheelchair, with family. bp 10:37 Condition: stable 10:37 Discharge instructions given to patient, Instructed on discharge instructions, follow up and referral plans. medication usage, Demonstrated understanding of instructions, follow-up care, medications, Prescriptions given X 2. 10:41 Patient left the ED. bp Signatures: Dispatcher [employer] EDLexi Huang Audri, RN RN aa5 Thomas Mcfarlane PA PA jr8 Trevor Foster, CARR[place] RN bp
--- NOTE | 2021-01-07 10:12 | EDPHYS ---
Physician Documentation [facility] Name: Cherelle Macias Age: 35 yrs Sex: Female : 1985 Arrival Date: 01/07/2021 Time: 07:56 Bed 6 Private MD: ED Physician Quincy Martin HPI: 01/07 08:26 This 35 yrs old Female presents to ER via Wheelchair with complaints of jr8 Abdominal Pain, Vomiting/Diarrhea. 08:26 This is a 35-year-old female patient that presented to the emergency room with sudden jr8 onset abdominal cramping with nausea vomiting and diarrhea that started this morning. Patient stated that she is continued to have episodes of vomiting and diarrhea and that the pain is not being relieved at this time.. Historical: - Allergies: 08:08 Phenergan; aa5 - PMHx: 08:08 Migraines; aa5 - PSHx: 08:08 D\T\C; Cholecystectomy; aa5 - Immunization history:: Client reports having NOT received the Covid vaccine. - Social history:: Smoking status: Patient denies any tobacco usage or history of. ROS: 08:26 Eyes: Negative for injury, pain, redness, and discharge, ENT: Negative for injury, jr8 pain, and discharge, Neck: Negative for injury, pain, and swelling, Cardiovascular: Negative for chest pain, palpitations, and edema, Respiratory: Negative for shortness of breath, cough, wheezing, and pleuritic chest pain, Back: Negative for injury and pain, MS/Extremity: Negative for injury and deformity, Skin: Negative for injury, rash, and discoloration, Neuro: Negative for headache, weakness, numbness, tingling, and seizure. 08:26 Abdomen/GI: Positive for abdominal pain, nausea, vomiting, and diarrhea, abdominal cramps. Exam: 08:26 Constitutional: This is a well developed, well nourished patient who is awake, alert, jr8 and in no acute distress. Cardiovascular: Regular rate and rhythm with a normal S1 and S2. No gallops, murmurs, or rubs. Normal PMI, no JVD. No pulse deficits. Respiratory: Lungs have equal breath sounds bilaterally, clear to auscultation and percussion. No rales, rhonchi or wheezes noted. No increased work of breathing, no retractions or nasal flaring. Back: No spinal tenderness. No costovertebral tenderness. Full range of motion. Skin: Warm, dry with normal turgor. Normal color with no rashes, no lesions, and no evidence of cellulitis. MS/ Extremity: Pulses equal, no cyanosis. Neurovascular intact. Full, normal range of motion. Neuro: Awake and alert, GCS 15, oriented to person, place, time, and situation. Cranial nerves II-XII grossly intact. Motor strength 5/5 in all extremities. Sensory grossly intact. 08:26 Abdomen/GI: Inspection: abdomen appears normal, Bowel sounds: active, all quadrants, Palpation: soft, in all quadrants, mild abdominal tenderness, in the abdomen diffusely, mass, is not appreciated, rebound tenderness, is not appreciated, voluntary guarding, is not appreciated, involuntary guarding, is not appreciated, no appreciated organomegaly, Indicators: McBurney's point is not tender, Cade's sign is negative, Rovsing's sign is negative. Vital Signs: 08:07 Weight 72.57 kg (R); Height 5 ft. 1 in. (154.94 cm) (R); aa5 08:10 BP 98 / 62; Pulse 71; Resp 20; Pulse Ox 100% ; bp 09:00 BP 87 / 51; Pulse 58; Resp 18; Pulse Ox 100% ; bp 10:37 BP 101 / 57; Pulse 65; Resp 17; Temp 98.1; Pulse Ox 99% ; bp 08:07 Body Mass Index 30.23 (72.57 kg, 154.94 cm) aa5 MDM: 08:06 Patient medically screened. jr8 10:09 Data reviewed: vital signs, nurses notes, lab test result(s), radiologic studies, CT jr8 scan. Data interpreted: Pulse oximetry: on room air is 100 %. Interpretation: normal. Counseling: I had a detailed discussion with the patient and/or guardian regarding: the historical points, exam findings, and any diagnostic results supporting the discharge/admit diagnosis, lab results, radiology results, the need for outpatient follow up, a family practitioner, to return to the emergency department if symptoms worsen or persist or if there are any questions or concerns that arise at home. Response to treatment: the patient's symptoms have markedly improved after treatment. Special discussion: Based on the patient's Hx, exam, and Dx evaluation, there is no indication for emergent surgery or inpatient Tx. It is understood by the patient/guardian that if the Sx's persist or worsen they need to return immediately for re-evaluation. ED course: Patient feeling markedly better. No active episodes of vomiting while here. Able to tolerate p.o. fluids. No acute findings on the CT. Discussed with patient most likely viral gastroenteritis. If she were to run fever or have worsening of symptoms or blood in stool to come back for further evaluation. Patient good with this and will follow up and/or come back if needed.. 01/07 08:12 Order name: Basic Metabolic Panel; Complete Time: 08:53 [facility] 01/07 08:12 Order name: CBC with Diff; Complete Time: :38 [facility] 01/07 08:12 Order name: Hepatic Function; Complete Time: :53 [facility] 01/07 08:12 Order name: Lipase; Complete Time: 08:53 [facility] 01/07 09:27 Order name: Urine Dipstick-Ancillary; Complete Time: 09:33 [facility] 01/07 09:28 Order name: Urine --Ancillary (enter results); Complete Time: 09:33 em1 01/07 08:12 Order name: IV Saline Lock; Complete Time: 08:21 [facility] 01/07 08:12 Order name: Labs collected and sent; Complete Time: 08:21 [facility] 01/07 08:54 Order name: CT Abd/Pelvis - IV Contrast Only; Complete Time: 10:03 [facility] 01/07 08:54 Order name: Urine Dipstick-Ancillary (obtain specimen); Complete Time: 09:27 [facility] 01/07 09:37 Order name: CBC Smear Scan; Complete Time: 09:38 [facility] 01/07 08:54 Order name: Urine Test (obtain specimen); Complete Time: 09:27 [facility] Administered Medications: 08:20 Drug: Zofran (Ondansetron) 4 mg Route: IVP; Site: right antecubital; bp 08:20 Drug: Bentyl (dicyclomine) 20 mg Route: IM; Site: right deltoid; bp 08:20 Drug: NS 0.9% 1000 ml Route: IV; Rate: 1000 ml; Site: right antecubital; bp Disposition: 17:24 Co-signature as Attending Physician, Quincy Martin MD I agree with the assessment and kdr plan of care. Disposition Summary: 01/07/21 10:12 Discharge Ordered Location: Home jr8 Problem: new jr8 Symptoms: have improved jr8 Condition: Stable jr8 Diagnosis - Acute Gastroenteritis jr8 Followup: jr8 - With: Private Physician - When: 2 - 3 days - Reason: Recheck today's complaints, Continuance of care, Re-evaluation by your physician Discharge Instructions: - Discharge Summary Sheet jr8 - Viral Gastroenteritis, Adult jr8 Forms: - Medication Reconciliation Form jr8 - Thank You Letter jr8 - Antibiotic Education jr8 - Prescription Opioid Use jr8 Prescriptions: - Zofran 4 mg Oral Tablet - take 1 tablet by ORAL route every 12 hours As needed; 20 tablet; Refills: 0, jr8 Product Selection Permitted - dicyclomine 20 mg Oral Tablet - take 1 tablet by ORAL route 3 times per day As needed; 21 tablet; Refills: 0, jr8 Product Selection Permitted Signatures: Dispatcher [employer] EDQuincy Lugo MD MD [facility] Jamila Ashford, RN RN aa5 Thomas Mcfarlane PA PA jr8 Trevor Foster, RN RN bp
[2021-01-07 10:49] VITALS: BP 101/57; TEMP 98.1; O2SAT 99
== END 2021-01-07 10:41 | disposition home or self-care (01) ==
LOC: ER 07:54
DX: K52.9 Noninfective gastroenteritis and colitis, unspecified (principal); Z88.8 Allergy status to other drugs, medicaments and biological substances
CPT/HCPCS: 36415; 74177; 80048; 80076; 81003; 81025; 83690; 85025; 96372; 96374; 99284; J0500; J2405; J7030; Q9967